=== PATIENT | male | born 1960 | race Caucasian/White ===

== ENCOUNTER 2016-10-04 05:53 | Day surgery (SDC) | payer OTHER ==
--- NOTE | 2016-10-03 14:49 | PCM.ANEPRE ---
Anesthesia Pre-Op Review Reason for Review: cardio hx Anesthesia Recommendations: Proceed with Procedure Additional Comments 56 yo male with hx idiopathic cardiomyopathy for excision of mass from right forearm. EF 30-35% 2013, somewhat recovered from EF at onset of CHF (15-20%) Dr Elliott can use local or gary block with mild sedation. Ok to proceed with usual day of surgery evaluation Chart Reviewed by: Geovanny Hassan MD, MD Oct 03, 2016 14:49
[~2016-10-04] VITALS: Ht 177.8 cm; Wt 83.8 kg
[~2016-10-04 05:53] MED LIST: CARV6.252 PO; FUR20 PO; LISI-567 PO; POTA10TA12 PO
[2016-10-04] MEDS ORDERED: fentaNYL-PF 50 mCg/mL 2 mL Inj ONE (05:54)
[2016-10-04] MEDS ORDERED: CeFAZolin Inj 2 GM in IV Premix 1 EACH IV ONE (06:00)
[2016-10-04 06:18] VITALS: BP 162/95; PULSE 85; RESP 16; O2SAT 96
[2016-10-04] MEDS: Lactated Ringer's 1,000 ML IV SCH ×2 (06:31→07:25)
[2016-10-04] MEDS ORDERED: Lidocaine 1%-Epi 1:100,000 20 mL Inj INFILTRATE ONE (07:24)
[2016-10-04] MEDS ORDERED: Dexamethasone 4 mg/mL Inj IVPUSH PRN (07:25)
[2016-10-04] MEDS ORDERED: fentaNYL-PF 50 mCg/mL 2 mL Inj IVPUSH PRN (07:25)
[2016-10-04] MEDS ORDERED: HYDROmorphone 1 mg/mL Inj IVPUSH PRN (07:25)
[2016-10-04] MEDS ORDERED: Atropine 0.4 mg/mL Inj IVPUSH PRN (07:25)
[2016-10-04] MEDS ORDERED: MetoCLOpramide 5 mg/mL 2 mL Inj IVPUSH PRN (07:25)
[2016-10-04] MEDS ORDERED: Lactated Ringer's 500 ML IV PRN (07:25)
[2016-10-04] MEDS ORDERED: Ondansetron 2 mg/mL 2 mL Inj IVPUSH PRN (07:25)
[2016-10-04] MEDS ORDERED: EPHEDrine Sulfate 50 mg/mL Inj IVPUSH PRN (07:25)
[2016-10-04] MEDS ORDERED: Lactated Ringer's 1,000 ML IV SCH (07:25)
[2016-10-04] MEDS ORDERED: Labetalol 5 mg/mL 4 mL Inj IV PRN (07:25)
[2016-10-04] MEDS ORDERED: Phenylephrine 10,000 mCg/mL Inj IVPUSH PRN (07:25)
--- NOTE | 2016-10-04 07:25 | PCM.HPANE ---
Patient Data Date of Service: Oct 04, 2016 Surgeon Admitting Provider: Attending Provider:Yfn Elliott DO Primary Care Physician:Eugenia Pendleton PA-C Other Provider: Reason for Visit Right Forearm Soft Tissue Mass Ht/WT & BMI Height (Feet): 5 Height (Inches): 10 Weight (Kilograms): 83.8 Body Mass Index 26.00 Allergies Coded Allergies: No Known Allergies (Unverified , 10/02/16) Diabetes History Hx Diabetes?: No Medications Hypertension Medication: Yes Home Meds Incl Beta Aleksandra: Yes Date Beta Aleksandra Taken: Oct 03, 2016 Time Beta Aleksandra Taken: 1000 Reported Medications Potassium Chloride ER 10 Meq Rcginl38 Meq PO DAILY Ref 0 TAKE WITH FOOD 10/02/16 Lisinopril 20 Mg Oliduy15 Mg PO DAILY 30 Days Ref 0 10/02/16 Furosemide 20 Mg Tab20 Mg PO DAILY 30 Days Ref 0 10/02/16 Carvedilol 6.25 Mg Tablet6.25 Mg PO BID Ref 0 10/02/16 History History of ENT Problems?: No Hx of Heart Problems?: Yes Cardiovascular History: Positive for:: Congestive Heart Failure (nonischemic cardiomyopathy ) Edema (recent ED visit [facility] 07/2016 for bilateral hand/feet edema) Hypertension Valvular Heart Disease Other Cardiac History: Chronic CHF- last found echo noted EF 30-35%, severe pulmonary hypertension 50-55mmHG Hx of Respiratory Problem?: Yes Respiratory History: Positive for:: Use of C-PAP Machine Hx Neurologic Problems?: No Hx of GI Problems?: No Hx of Problems?: No Hx Musculoskeletal Problems?: Yes Musculoskeletal History: Positive for:: Musculoskeletal Trauma (right forearm soft tissue mass excision current admission problem) Hx Any Other Health Problems?: Yes Other History: Denies:: Cancer Thyroid Disease Hx Diabetes: No Have You Smoked inLast 12 mo: Yes Stop/Bang S-Snoring: Do You Snore Loudly: Yes T-Tired: feel tired, fatigued: No O-Obsered: Observed not breath: Yes P-Blood Pressure: treated: Yes B- Body Mass Index > 35 kg/m2: No A- Age over 50: Yes N- Neck Large Circumference: No G- Gender Male: Yes NICOLE Total Score: 5 Risk Assessment Category Category 1A: Patient has history of documented sleep apnea, and HAS NOT received any narcotic, sedative or anesthesia administration during this stay. Category 1B: Patient has history of documented sleep apnea, and HAS received any narcotic , sedative or anesthesia administration during this stay Category 2: Patient has SUSPECTED Obstructive Sleep Apnea, and HAS received any narcotic , sedative or anesthesia administration during this stay. Category 3: Patient has SUSPECTED Obstructive Sleep Apnea and HAS NOT received narcotic, sedative or anesthesia administration during this stay. Category 4: Outpatient in Procedural Areas with known sleep apnea or who screen positive for High Risk via the STOP/BANG questionnaire. Exam Exam Vital Signs Vital Signs Date Time Temp Pulse Resp B/P Pulse Ox O2 Delivery O2 Flow Rate FiO2 10/04/16 06:18 36.1 85 16 162/95 96 Room Air General Appearance: Alert, Oriented X3, Cooperative HEENT/AIRWAY: MP 2 (extremely poor, rotted and missing dentition) Lungs: Clear to Auscultation, Normal Air Movement (Faint expirator wheeze RUL clears with cough) Heart: Normal S1, Normal S2 Meds/Labs/Diagnostics Admission Meds Current Medications Lactated Ringer's (Lr) 1,000 ml @ 120 mls/hr Q8H20M IV Last administered on t 06:31; Start 10/04/16 at 05:00; Stop 10/04/16 at 13:19 Plan Impression Patient chart reviewed, patient interviewed and anesthestic plan with risks, benefits, and alternatives discussed, and informed consent obtained. NPO Status: 0400 TEA ASA Physical Status: ASA3 Severe Disease Anesthetic Plan: MAC Bene/Risks/Altern/Consents: Yes HP Complete Prior to Induction: Yes Scooby Dykes DO Oct 04, 2016 07:25
[2016-10-04] MEDS ORDERED: HYDROcodone-APAP 7.5-325 mg Tablet PO PRN (07:35)
[2016-10-04 08:12] VITALS: BP 143/100; PULSE 78; RESP 20; O2SAT 97
--- NOTE | 2016-10-04 08:39 | PCM.ANEP1 ---
Post Anesthesia Phase 1 PACU Phase 1 Assessment Date of Service: Oct 04, 2016 Vital Signs Vital Signs Date Time Temp Pulse Resp B/P Pulse Ox O2 Delivery O2 Flow Rate FiO2 10/04/16 08:12 36.2 78 20 143/100 97 Room Air 10/04/16 06:18 36.1 85 16 162/95 96 Room Air Level of Alertness: Awake, talking CASSIDY's with Equal Strength: Yes Pain: No Nausea or Vomiting: No Oxygen Delivery: Room Air Lungs: Clear to Auscultation, Normal Air Movement (Faint expirator wheeze RUL clears with cough) Dermatome Level: Full Sensation Scooby Dykes DO Oct 04, 2016 08:38
[2016-10-04 08:59] VITALS: BP 148/90; PULSE 78; RESP 24; O2SAT 98
--- NOTE | 2016-10-04 10:09 | PCM.ANEP2 ---
Post Anesthesia Evaluation ASA/CMS Post Anesthesia Date of Service: Oct 04, 2016 VS in Patient's Normal Range?: Yes Resp Stable; Airway Patent?: Yes CV Function & Hydration Stable: Yes Mental Status Recovered?: Yes Pain control Satisfactory?: Yes N/V Control Satisfactory?: Yes Scooby Dykes DO Oct 04, 2016 10:09
--- NOTE | 2016-10-05 00:09 | OP ---
[address] [address] OPERATIVE REPORT PATIENT: ZION CARLTON : 1960 MR#: [id number] ADMIT: 10/04/2016 JOB ID: [id number] DATE OF SURGERY: 10/04/2016 PREOPERATIVE DIAGNOSIS(ES): Right proximal forearm soft tissue mass. POSTOPERATIVE DIAGNOSIS(ES): Right proximal forearm soft tissue mass. PROCEDURE: Excision of right proximal forearm subcutaneous soft tissue mass measuring 4 cm in diameter. SURGEON: Yfn Elliott D.O. ANESTHESIA: Monitored anesthesia care with local. BRIEF HISTORY: The patient is a pleasant 56-year-old male with a longstanding history of a mass to the subcutaneous border of his proximal forearm. Patient continues to have pain when he rests his elbow on hard surfaces. He discussed having this excised as it was starting to become more bothersome to him. I discussed with him the risks, benefits, alternatives and indications for excision of right proximal forearm subcutaneous mass. He understood the risks include, but not limited to, neurovascular injury, tendon injury, infection, failure to remove all of the mass, recurrent stiffness, persistent pain, all which will require further intervention. The patient had all questions answered. Consent was signed and placed in chart. PROCEDURE IN DETAIL: The patient was brought to the operative suite and placed supine on the operating table. Surgical time-out was performed. Everyone in the room was in agreement. After appropriate anesthesia was obtained, the right arm was then prepped and draped in sterile fashion. A longitudinal incision was made directly overlying the subcutaneous mass and dissection was carried down to the mass, which measured approximately 4 cm in diameter. The mass was then freed up from its surrounding soft tissue, including the subcutaneous fat and the subcutaneous border of the ulna. The mass did not penetrate the deep fascia. This was removed in its entirety and sent off to Pathology for further identification. Copious irrigation was then performed, followed by closure of the skin with 4-0 Vicryl in subcutaneous fashion and 4-0 nylon for the skin. Patient was then placed in a bulky compressive dressing. ESTIMATED BLOOD LOSS: 5 cc. COMPLICATIONS: None. DISPOSITION: The patient tolerated the procedure well. Anesthesia was reversed. The patient was transferred to PACU for recovery. SPECIMENS: A 4 cm proximal right forearm subcutaneous mass was sent off to Pathology. POSTOPERATIVE PLAN: The patient will follow up in the office in two weeks. Will remove the patient's sutures at that time and have him start working on range of motion and scar mobilization.
--- NOTE | 2016-10-05 14:46 | PATH ---
SURGICAL PATHOLOGY Attending Physician:Yfn Elliott MD CASE STATUS: Signed Out PATIENT NAME: ZION CARLTON PID: [id number] : 1960 DATE COLLECTED:10/04/2016 16:42 SPECIMEN: Mass, NOS CLINICAL HISTORY: RIGHT FOREARM SOFT TISSUE MASS 1).RIGHT ELBOW MASS FINAL DIAGNOSIS: 1.RIGHT ELBOW, MASS, BIOPSY: FIBROUS TISSUE WITH A SOFT TISSUE CYST LINED BY HISTIOCYTES SUGGESTING ORIGIN FROM OLD FAT NECROSIS. SEVERAL PSEUDOGRANULOMATOUS-APPEARING AREAS WITH CENTRAL FIBRINOID NECROSIS SURROUNDED BY PALISADING HISTIOCYTES IN A PATTERN SOMEWHAT SUGGESTIVE OF RHEUMATOID NODULE. THERE IS MILD CHRONIC INFLAMMATION AND PROMINENT FIBROSIS. THE CHANGES WOULD BE CONSISTENT WITH A RESOLVING BURSITIS. ICD10 CODE M71.521 NOTE: Although some of the changes present within this material are suggestive of rheumatoid nodule, they are not at all specific. Clinical correlation is suggested. GROSS DESCRIPTION: The specimen is received in formalin, labeled with the patient's name, sublabeled as right elbow mass and consists of a duke white and yellow solid-cystic rubbery well-circumscribed mass (2.7 x 1-0.4 x 1.7 cm) with attached foley-pink rubbery soft tissue (4.0 x 2.0 x 0.7 cm). The cavity contains grayish yellow flaky friable material. The lining is duke-white. The wall is up to 0.4 cm thick. The soft tissue is unremarkable. Ink code: black-resection margin. Section code: (A-C) mass with soft tissue, serially sectioned, national sales representative. 10/04/16 JM MICRO DESCRIPTION: See diagnosis. ICD-9 CODES: CPT CODES: 1: 64524 Electronically Signed Out Gavin Ardon MD [facility] [address], [place] [address] Technical component performed at [facility], [facility] [address], [place], [address]
== END 2016-10-04 23:59 | disposition home or self-care (01) ==
LOC: SAS 05:53
PROVIDERS: ATTEND Orthopaedic Surgery
DX: M71.521 Other bursitis, not elsewhere classified, right elbow (principal); L72.8 Other follicular cysts of the skin and subcutaneous tissue; I10 Essential (primary) hypertension; I50.9 Heart failure, unspecified; I42.8 Other cardiomyopathies; F17.210 Nicotine dependence, cigarettes, uncomplicated; I27.2 Other secondary pulmonary hypertension; G47.33 Obstructive sleep apnea (adult) (pediatric); Z79.82 Long term (current) use of aspirin
CPT/HCPCS: 25071; 88305; J0690; J2250; J3010; J7120